=== PATIENT | female | born 1940 | race Caucasian/White ===

== ENCOUNTER 2016-08-24 09:22 | Day surgery (SDC) | payer MEDICARE, BC ==
[2016-08-23 09:08] VITALS: BMI 36.6
[~2016-08-24 09:22] MED LIST: LACTATED RINGERS 1,000 ML IV SCH
[2016-08-24] MEDS ORDERED: LIDOCAINE 1% 20 ML VIAL (10MG/ML) FOR IV START SQ ONE (10:26)
[2016-08-24 10:28] VITALS: RESP 16; TEMP 97.4
[2016-08-24 10:36] LABS: Glucose,Whole Blood 98 mg/dL (75-99)
[2016-08-24] MEDS ORDERED: PROPOFOL 10 MG/ML 20 ML VIAL IV ONE (10:47)
--- NOTE | 2016-08-24 11:18 | P.PCN ---
Date of Procedure: 08/24/16 Preoperative Diagnosis: Postoperative Diagnosis: Procedure(s) Performed: Procedure: Esophagogastroduodenoscopy and biopsy. Preoperative diagnosis: Dyspepsia and dysphagia. Postoperative diagnosis: 1. Small sliding hiatal hernia with no obvious esophagitis or complicated reflux disease. 2. Mild antral gastritis with no ulcers or gastric outlet obstruction. 3. Multiple biopsies obtained from the duodenum, antrum and esophagus. Preparation sedation: Was provided by anesthesia. Brief clinical history: The patient is a 76-year-old female who is referred for this evaluation because of onset of dysphagia over the last 2-3 months with no other alarm symptoms. No history of reflux or postnasal drip. She has been complaining of belching and excessive gassiness in her stomach as well. ENT evaluation was negative. This evaluation is to assess for esophagitis or complicated reflux disease or other pathology. Procedure: With the patient on her left lateral decubitus position and after informed consent and adequate sedation, the Olympus-GIF 160 video upper endoscope was used and was advanced under direct vision through the cricopharyngeus down the esophagus. GE junction was around 38-39 cm from the incisors and there was a small sliding hiatal hernia. The endoscope was then passed into the stomach which was insufflated with air and inspected in detail including the retroflex view in the cardia. There was minimal mottling and erythema in the antrum but no ulcers or erosions. Pyloric channel, duodenal bulb, post bulbar area and descending duodenum were essentially within normal limits. Because of her symptoms, I obtained biopsies from the duodenum, antrum and esophagus then the endoscope was withdrawn. The patient tolerated the procedure well. Plan: The patient was reassured. Will await biopsy results and make further plans based on her course and biopsy results. She will follow-up with you as planned and I will be happy to see in the office if her symptoms persist. Implants: Indications for Procedure: Operative Findings: Description of Procedure:
[2016-08-24 11:27] VITALS: BP 129/78; PULSE 66
== END 2016-08-24 12:08 | disposition home or self-care (01) ==
LOC: ORWHC2ENDO 09:22
DX: K44.9 Diaphragmatic hernia without obstruction or gangrene (principal); R13.10 Dysphagia, unspecified; R10.13 Epigastric pain; K21.9 Gastro-esophageal reflux disease without esophagitis; H04.129 Dry eye syndrome of unspecified lacrimal gland; E78.5 Hyperlipidemia, unspecified; E07.9 Disorder of thyroid, unspecified; Z79.82 Long term (current) use of aspirin; Z79.899 Other long term (current) drug therapy
CPT/HCPCS: 88305; 88342; 43239; J2704

== ENCOUNTER 2022-05-23 05:22 | Inpatient (IN) | payer MEDICARE, BC ==
[2022-05-23] MEDS ORDERED: NALOXONE 0.4 MG/ML 1 ML VIAL IV PRN (05:48)
[2022-05-23] MEDS ORDERED: ACETAMINOPHEN TAB 325 MG TAB PO PRN (05:48)
--- NOTE | 2022-05-23 05:56 | ED ---
General Adult HPI - General Chief complaint: Dizziness Stated complaint: bradycardia Time Seen by Provider: 05/23/22 05:28 Source: patient, EMS, RN notes reviewed, old records reviewed Mode of arrival: EMS Limitations: no limitations - History of Present Illness Initial comments: 82-year-old female who presents as a transfer from outside hospital with l ightheadedness when standing and bradycardia. Patient was found to be bradycardic and sent to this institution to follow with her international account representative. She states that she had noticed a bradycardia over the past 24 hours. She is on metoprolol. Denies any chest pain or dyspnea. No fever. No vomiting. - Related Data Home Medications Medication Instructions Recorded Confirmed Aspirin 81 mg PO DAILY 02/27/14 08/23/16 Furosemide [Lasix] 40 mg PO DAILY 02/27/14 08/24/16 Latanoprost Ophth [Xalatan 0.005%] 1 drops BOTH EYES HS 02/27/14 08/24/16 Levothyroxine Sodium [Synthroid] 112 mcg PO QAM 02/27/14 08/24/16 Losartan Potassium [Cozaar] 100 mg PO QAM 02/27/14 08/24/16 [place]-3 Fatty Acids/Fish Oil [Fish 1 each PO DAILY 02/27/14 08/23/16 Oil 1,000 mg Softgel] Potassium Chloride ER [K-Dur 20] 20 meq PO BID 02/27/14 08/24/16 Simvastatin [Zocor] 10 mg PO HS 02/27/14 08/24/16 Vitamin E (Dl,Tocopheryl Acet) 400 unit PO DAILY 02/27/14 08/23/16 [Vitamin E] allopurinoL [Zyloprim] 300 mg PO DAILY 02/27/14 08/24/16 Omeprazole [PriLOSEC] 20 mg PO AC-BRKFST 08/23/16 08/24/16 Allergies Allergy/AdvReac Type Severity Reaction Status Date / Time venom-wasp [wasp venom] Allergy Swelling Verified 08/24/16 10:35 Review of Systems ROS Statement: Those systems with pertinent positive or pertinent negative responses have been documented in the HPI. ROS Other: All systems not noted in ROS Statement are negative. Past Medical History Past Medical History: Eye Disorder, GERD/Reflux, Hyperlipidemia, Hypertension, Osteoarthritis (OA), Skin Disorder, Thyroid Disorder Additional Past Medical History / Comment(s): VARICOSE VEINS, ROSACEA, GLAUCOMA History of Any Multi-Drug Resistant Organisms: None Reported Past Surgical History: Bladder Surgery, Hysterectomy, Joint Replacement, Orthopedic Surgery Additional Past Surgical History / Comment(s): BLADDER SUSP, IAN KNEE REPLACEMENTS, LEFT SHOULDER SURGERY Past Anesthesia/Blood Transfusion Reactions: No Reported Reaction Additional Past Anesthesia/Blood Transfusion Reaction / Comment(s): Pt has never recieved blood. Past Psychological History: No Psychological Hx Reported Past Alcohol Use History: None Reported Past Drug Use History: None Reported - Past Family History Sister(s) Family Medical History: Cancer Additional Family Medical History / Comment(s): LUNG CANCER Brother(s) Family Medical History: Cancer Father Family Medical History: Myocardial Infarction ([place]) Mother Family Medical History: Cancer General Exam Limitations: no limitations General appearance: alert, in no apparent distress Head exam: Present: atraumatic, normocephalic Eye exam: Present: normal appearance, PERRL ENT exam: Present: normal exam Neck exam: Present: normal inspection. Absent: tenderness, meningismus Respiratory exam: Present: normal lung sounds bilaterally. Absent: respiratory distress, wheezes, rales Cardiovascular Exam: Present: normal rhythm, bradycardia GI/Abdominal exam: Present: soft. Absent: distended, tenderness, guarding Extremities exam: Present: normal inspection, normal capillary refill. Absent: pedal edema Neurological exam: Present: alert, oriented X3, CN II-XII intact. Absent: motor sensory deficit Psychiatric exam: Present: normal affect, normal mood Skin exam: Present: warm, dry, intact. Absent: cyanosis, diaphoretic Course Vital Signs 05/23/22 05:28 Temperature 97.7 F Pulse Rate 41 L Respiratory 16 Rate Blood Pressure 172/69 O2 Sat by Pulse 98 Oximetry EKG Findings - EKG Comments: EKG Findings:: EKG: Bradycardia with first-degree AV block and second-degree 2-1 AV block ventricular rate of 42, ND interval 229, QRS duration 77, QTC 4:[address] segment elevation. Medical Decision Making - Medical Decision Making Was pt. sent in by a medical professional or institution (, PA, ASSESSOR, urgent care, hospital, or half-way...) When possible be specific @ -Sent from outside emergency room Did you speak to anyone other than the patient for history (EMS, parent, family, police, friend...)? What history was obtained from this source @ -No Did you review nursing and triage notes (agree or disagree)? Why? @ -I reviewed and agree with nursing and triage notes Were old charts reviewed (outside hosp., previous admission, EMS record, old EKG, old radiological studies, urgent care reports/EKG's, half-way records)? Report findings @ -Reviewed chart from ER visit including EKG and laboratory testing Differential Diagnosis (chest pain, altered mental status, abdominal pain women, abdominal pain men, vaginal bleeding, weakness, fever, dyspnea, syncope, headache, dizziness, GI bleed, back pain, seizure, CVA, palpatations, mental health, musculoskeletal)? Differential Palpitations Ventricular arrhythmias, atrial arrhythmias, myocardial infarction, anemia, thyrotoxicosis, electrolyte imbalance, hypokalemia, pulmonary embolism, pulmonary disease, drugs, alcohol, anxiety, stress.... This is not meant to be an all-inclusive list. EKG interpreted by me (3pts min.). @ -As above X-rays interpreted by me (1pt min.). @ -Chest x-ray currently being loaded interpreted as negative. CT interpreted by me (1pt min.). @ -None done U/S interpreted by me (1pt. min.). @ -None done What testing was considered but not performed or refused? (CT, X-rays, U/S, labs)? Why? @ -None What meds were considered but not given or refused? Why? @ -None Did you discuss the management of the patient with other professionals (professionals i.e. , PA, ASSESSOR, lab, RT, psych nurse, social studies department chair, amusement ride inspector, teacher, correction officer head, case advocate)? Give summary @ -Patient will be admitted to EMS, case discussed with the admitting team and cardiology. Was smoking cessation discussed for >3mins.? @ -No Was critical care preformed (if so, how long)? @ -No Were there social determinants of health that impacted care today? How? (Homelessness, low income, unemployed, alcoholism, drug addiction, transportation, low edu. Level, literacy, decrease access to med. care, usp, rehab)? @ -No Was there de-escalation of care discussed even if they declined (Discuss DNR or withdrawal of care, Hospice)? DNR status @ -No What co-morbidities impacted this encounter? (DM, HTN, Smoking, COPD, CAD, Cancer, CVA, ARF, Chemo, Hep., AIDS, mental health diagnosis, sleep apnea, morbid obesity)? @ -Hypertension, sleep apnea Was patient admitted / discharged? Hospital course, mention meds given and route, prescriptions, significant lab abnormalities, going to OR and other pertinent info. @ -82-year-old female transferred from outside facility with bradycardia and second-degree AV block with 2-1 conduction ventricular rate in the 40s. Blood pressure remained stable throughout transport and admitted at the time of presentation. She had laboratory testing which revealed normal CBC, normal CMP. These lab tests will be repeated as well as troponin testing. To be admitted to internal medicine with cardiology on consult. Undiagnosed new problem with uncertain prognosis? @ -No Drug Therapy requiring intensive monitoring for toxicity (Heparin, Nitro, Insulin, Cardizem)? @ -No Were any procedures done? @ -No Diagnosis/symptom? @ -Second-degree heart block with 2-1 AV conduction Acute, or Chronic, or Acute on Chronic? @ -Acute Uncomplicated (without systemic symptoms) or Complicated (systemic symptoms)? @ -Complicated Side effects of treatment? @ -Possibly Exacerbation, Progression, or Severe Exacerbation? @ -No Poses a threat to life or bodily function? How? (Chest pain, [place], [place], pneumonia, PE, COPD, DKA, ARF, appy, cholecystitis, CVA, Diverticulitis, Homicidal, Suicidal, threat to staff... and all critical care pts) @ -Bradycardia with hypotension Disposition Clinical Impression: 2nd degree AV block Disposition: ADMITTED IP TO THIS HOSP Condition: Stable Is patient prescribed a controlled substance at d/c from ED?: No Referrals: Nonstaff,Physician [Primary Care Provider] - 1-2 days Time of Disposition: 05:56
[2022-05-23 08:38] LABS: Calcium 9.5 mg/dL (8.4-10.2); Potassium 4.3 mmol/L (3.5-5.1)
[2022-05-23 09:14] LABS: HCT 41.1 % (34.0-46.0); HGB 14.2 gm/dL (11.4-16.0); MCH 33.2 pg (25.0-35.0); MCHC 34.5 g/dL (31.0-37.0); MCV 96.3 fL (80.0-100.0); Mean Platelet Volume 8.1; Platelet Count 153 k/uL (150-450); RBC 4.27 m/uL (3.80-5.40); RDW 13.7 % (11.5-15.5); WBC 6.6 k/uL (3.8-10.6)
[2022-05-23] MEDS: ASPIRIN 81 MG PO SCH (09:21)
[2022-05-23] MEDS: LOSARTAN 50 MG TAB PO SCH (09:21)
[2022-05-23] MEDS: SODIUM CHLORIDE 0.9% 1,000 ML IV SCH ×3 (10:00→22:30)
--- NOTE | 2022-05-23 10:29 | P.CRDCN ---
History of Present Illness Consult date: 05/23/22 Reason for Consult (text): Bradycardia, second degree heart block History of present illness: History of present illness: This is an 82-year-old female patient of Dr. Grisel Hickman with past medical history of hypertension, dyslipidemia, mild obstructive coronary artery disease. She was last seen in the office in July 2021. We have been asked to evaluate the patient for bradycardia and second-degree heart block. Patient presented to the emergency center with lightheadedness with standing and was found to have bradycardia. EKG sinus rhythm with first-degree AV block, second-degree AV block with ventricular rate of 42, no acute ST-T changes Chest x-ray: Home cardiac medications: Aspirin 81 mg daily, Bumex 2 mg daily, Lasix 40 mg daily, losartan 100 mg daily, magnesium 500 mg daily, Toprol-XL 50 mg daily, simvastatin 40 mg at bedtime Cardiac catheterization in 2010 revealed minimal CAD Echocardiogram 12/2018 revealed normal LV size and normal function. Mild concentric hypertrophy and mild aortic regurgitation. Mild mitral regurgi tation. Mild tricuspid regurgitation. Mild pulmonic regurgitation Lexiscan stress test 05/2018: Negative stress test Review Of Systems: At the time of my evaluation: Constitutional: No fever, no chills. No weakness, fatigue or lethargy. EENT: No headache. No dizziness. Lungs: No shortness of breath, cough, no sputum production. No wheezing. Cardiovascular: No chest pain, no lower extremity edema. No palpitations. No paroxysmal nocturnal dyspnea. No orthopnea. No lightheadedness or dizziness. No syncopal episodes. Abdominal: No abdominal pain. No nausea, vomiting. No diarrhea. No constipation. No bloody or tarry stools. Genitourinary: No dysuria.. No urinary retention. Musculoskeletal: No myalgias. No muscle weakness, no frequent falls. No back pain. No neck pain. Integumentary: No wounds. No rash. No unusual bruising. Neurologic: No aphasia. No facial droop. No change in mentation. No head injury. No headache. Physical examination: Gen: This is an 82-year-old female. She is resting on the ER stretcher and appears to be comfortable and in no acute distress. VS: reviewed HEENT: Head is atraumatic, normocephalic. Pupils equal, round. Sclerae is a nicteric. NECK: Supple. No JVD. . LUNGS: Clear to auscultation. No wheezes or rhonchi. No intercostal retractions. HEART: Regular rate and rhythm. No murmur. ABDOMEN: Soft No tenderness. EXTREMITIES: No pedal edema. No calf tenderness. NEUROLOGICAL: Patient is awake, alert and oriented x3. Assessment: [ ] Plan: [ ] Obtain 2-D echocardiogram and Doppler study to assess cardiac structure and function Further recommendations to follow based upon clinical course Thank you kindly for this consultation. Nurse practitioner note has been reviewed, I agree with documented findings and plan of care. Patient was seen and examined. Past Medical History Past Medical History: Eye Disorder, GERD/Reflux, Hyperlipidemia, Hypertension, Osteoarthritis (OA), Skin Disorder, Thyroid Disorder Additional Past Medical History / Comment(s): VARICOSE VEINS, ROSACEA, GLAUCOMA History of Any Multi-Drug Resistant Organisms: None Reported Past Surgical History: Bladder Surgery, Hysterectomy, Joint Replacement, Orthopedic Surgery Additional Past Surgical History / Comment(s): BLADDER SUSP, IAN KNEE REPLACEMENTS, LEFT SHOULDER SURGERY Past Anesthesia/Blood Transfusion Reactions: No Reported Reaction Additional Past Anesthesia/Blood Transfusion Reaction / Comment(s): Pt has never recieved blood. Past Psychological History: No Psychological Hx Reported Past Alcohol Use History: None Reported Past Drug Use History: None Reported - Past Family History Sister(s) Family Medical History: Cancer Additional Family Medical History / Comment(s): LUNG CANCER Brother(s) Family Medical History: Cancer Father Family Medical History: Myocardial Infarction ([place]) Mother Family Medical History: Cancer Medications and Allergies Home Medications Medication Instructions Recorded Confirmed Type Aspirin 81 mg PO DAILY 02/27/14 05/23/22 History Furosemide [Lasix] 40 mg PO DAILY 02/27/14 05/23/22 History Latanoprost Ophth [Xalatan 0.005%] 1 drop BOTH EYES HS 02/27/14 05/23/22 History Losartan Potassium [Cozaar] 100 mg PO DAILY 02/27/14 05/23/22 History [place]-3 Fatty Acids/Fish Oil [Fish 1 cap PO DAILY 02/27/14 05/23/22 History Oil 1,000 mg Softgel] Potassium Chloride ER [K-Dur 20] 20 meq PO BID 02/27/14 05/23/22 History Vitamin E (Dl,Tocopheryl Acet) 400 unit PO DAILY 02/27/14 05/23/22 History [Vitamin E] allopurinoL [Zyloprim] 300 mg PO DAILY 02/27/14 05/23/22 History Ascorbic Acid [Vitamin C] 1,000 mg PO DAILY 05/23/22 05/23/22 History Brimonidine Tartrate [Alphagan P 1 drop BOTH EYES BID 05/23/22 05/23/22 History 0.2% Ophth Soln] Bumetanide [BUMEX] 2 mg PO DAILY 05/23/22 05/23/22 History Calcium Carbonate [Calcium] 600 mg PO DAILY 05/23/22 05/23/22 History EPINEPHrine (Auto Inject) [Epipen] 0.3 mg IM ONCE PRN 05/23/22 05/23/22 History Levothyroxine Sodium [Synthroid] 100 mcg PO DAILY 05/23/22 05/23/22 History Magnesium Oxide [Magnesium] 500 mg PO DAILY 05/23/22 05/23/22 History Metoprolol Succinate [Toprol XL] 50 mg PO DAILY 05/23/22 05/23/22 History Multivit-Min/FA/Lycopen/Lutein 1 tab PO DAILY 05/23/22 05/23/22 History [Centrum Silver Tablet] Omeprazole 20 mg PO DAILY 05/23/22 05/23/22 History Simvastatin [Zocor] 40 mg PO HS 05/23/22 05/23/22 History Vitamin B Complex 1 cap PO DAILY 05/23/22 05/23/22 History Zinc Gluconate [Zinc] 50 mg PO DAILY 05/23/22 05/23/22 History Allergies Allergy/AdvReac Type Severity Reaction Status Date / Time bee venom protein (honey bee) Allergy Anaphylaxis Verified 05/23/22 07:06 venom-wasp [wasp venom] Allergy Anaphylaxis Verified 05/23/22 07:06 Physical Exam Vitals: Vital Signs Temp Pulse Resp BP Pulse Ox 05/23/22 06:30 38 L 16 151/60 97 05/23/22 06:00 39 L 16 172/69 96 05/23/22 05:28 97.7 F 41 L 16 172/69 98 Intake and Output 05/22/22 05/23/22 05/23/22 22:59 06:59 14:59 Other: Weight 97.522 kg Results Current Medications Generic Name Dose Route Start Last Admin Trade Name Freq PRN Reason Stop Dose Admin Acetaminophen 650 mg 05/23/22 05:48 Acetaminophen Tab 325 Mg Tab PO Q6HR PRN Mild Pain or Fever > 100.5 Naloxone HCl 0.2 mg 05/23/22 05:48 Naloxone 0.4 Mg/Ml 1 Ml Vial IV Q2M PRN Opioid Reversal Intake and Output 05/22/22 05/23/22 05/23/22 22:59 06:59 14:59 Other: Weight 97.522 kg
--- NOTE | 2022-05-23 11:31 | CA ---
Transthoracic Echo Report Name: Radha Faria Age: 82 Gender: F : 1940 Exam Date: 05/23/2022 10:16 Exam Location: [facility] Ht (in): 65 Wt (lb): 215 Ordering Physician: Tayler Garzon Attending/Referring Phys: Hair Boiler Mehdi Esposito RDCS Procedure CPT: Indications: LVF Cardiac Hx: Technical Quality: Fair Contrast 1: Total Dose (mL): Contrast 2: Total Dose (mL): MEASUREMENTS (Male / Female) Normal Values 2D ECHO LV Diastolic Diameter PLAX 4.5 cm 4.2 - 5.9 / 3.9 - 5.3 cm LV Systolic Diameter PLAX 3.4 cm LV Fractional Shortening PLAX 23.4 % IVS Diastolic Thickness 1.0 cm 0.6 - 1.0 / 0.6 - 0.9 cm IVS Systolic Thickness 1.3 cm LVPW Diastolic Thickness 1.0 cm 0.6 - 1.0 / 0.6 - 0.9 cm LVPW Systolic Thickness 1.3 cm LV Relative Wall Thickness 0.4 RV Internal Dim ED PLAX 3.1 cm LVOT Diameter 2.3 cm LA Systolic Diameter LX 3.1 cm 3.0 - 4.0 / 2.7 - 3.8 cm LV Diastolic Volume MOD BP 88.1 cm??? 67 - 155 / 56 - 104 cm??? LV Systolic Volume MOD BP 34.8 cm??? 22 - 58 / 19 - 49 cm??? LV Ejection Fraction MOD BP 60.5 % >= 55 % LV Stroke Volume MOD BP 53.3 cm??? LV Diastolic Volume MOD 4C 87.2 cm??? LV Systolic Volume MOD 4C 24.2 cm??? LV Ejection Fraction MOD 4C 72.3 % LV Stroke Volume MOD 4C 63.1 cm??? LV Diastolic Length 4C 7.9 cm LV Systolic Length 4C 5.8 cm LV Diastolic Volume MOD 2C 73.8 cm??? LV Systolic Volume MOD 2C 49.0 cm??? LV Ejection Fraction MOD 2C 33.6 % LV Stroke Volume MOD 2C 24.8 cm??? LV Diastolic Length 2C 6.4 cm LV Systolic Length 2C 6.0 cm Ascending Aorta Diameter 2.8 cm M-MODE Aortic Root Diameter MM 3.4 cm LA Systolic Diameter MM 4.2 cm LA Ao Ratio MM 1.2 DOPPLER AV Peak Velocity 201.0 cm/s AV Peak Gradient 16.2 mmHg AI Peak Velocity 343.7 cm/s AI Peak Gradient 47.2 mmHg AI Deceleration [place] 105.2 cm/s??? AI Pressure Half Time 947.0 ms LVOT Peak Velocity 138.7 cm/s LVOT Peak Gradient 7.7 mmHg AV Area Cont Eq pk 2.9 cm??? MV Deceleration [place] 830.7 cm/s??? MR Peak Velocity 189.6 cm/s MR Peak Gradient 14.4 mmHg Mitral E Point Velocity 155.3 cm/s Mitral A Point Velocity 73.5 cm/s Mitral E to A Ratio 2.1 MV Deceleration Time 187.0 ms MV E' Velocity 12.2 cm/s Mitral E to MV E' Ratio 12.7 TR Peak Velocity 162.4 cm/s TR Peak Gradient 10.5 mmHg Right Ventricular Systolic Press 15.5 mmHg PV Peak Velocity 89.6 cm/s PV Peak Gradient 3.2 mmHg FINDINGS Left Ventricle Left ventricular ejection fraction is estimated at 55-60 %. Grade 1 diastolic dysfunction. Normal basal systolic function. Right Ventricle Normal right ventricular size and function. Right Atrium Normal right atrial size. Left Atrium Normal left atrial size. Mitral Valve Mild thickening/calcification of the anterior mitral valve leaflet. Mild thickening/calcification of the posterior mitral valve leaflet. Moderate mitral annular calcification. Trace mitral regurgitation. Aortic Valve Trileaflet aortic valve. Focal thickening of the aortic valve cusps. Diffuse thickening (sclerosis) of the aortic valve cusps without reduced excursion. Borderline aortic stenosis; [id number] aortic regurgitation. Tricuspid Valve Mild tricuspid regurgitation. Pulmonic Valve Pulmonic valve not well visualized. Pericardium Normal pericardium. Echo free space anterior to the right ventricle likely represents a fat pad. Aorta Normal size aortic root and proximal ascending aorta. CONCLUSIONS Left ventricular ejection fraction 55-60% Moderate mitral annular calcification Trace mitral regurgitation Mild to moderate aortic regurgitation Mild tricuspid regurgitation No pericardial effusion Previewed by: Dr. Marcelo Becker DO (Electronically Signed) Final Date: 23 May 2022 11:30
--- NOTE | 2022-05-23 11:55 | P.HPIM ---
History of Present Illness Patient is pleasant 82-year-old female came in because of dizziness, lightheadedness. Patient was seen at the outside hospital where she was found to have a severe bradycardia second-degree type I AV block. Patient did take metoprolol within last 24 hours which is being held and cardiology evaluated the patient. If patient can use to have bradycardia after 48 hours of taking metoprolol patient will be considered for pacemaker placement. Echocardiogram showed normal ejection fraction. No other significant abnormality was evident on biochemical and radiological testing. TSH is within normal limits REVIEW OF SYSTEMS: CONSTITUTIONAL: No fever, no malaise, no fatigue. HEENT: No recent visual problems or hearing problems. Denied any sore throat. CARDIOVASCULAR: No chest pain, orthopnea, PND, no palpitations, no syncope. PULMONARY: No shortness of breath, no cough, no hemoptysis. GASTROINTESTINAL: No diarrhea, no nausea, no vomiting, no abdominal pain. NEUROLOGICAL: No headaches, no weakness, no numbness. HEMATOLOGICAL: Denies any bleeding or petechiae. GENITOURINARY: Denies any burning micturition, frequency, or urgency. MUSCULOSKELETAL/RHEUMATOLOGICAL: Denies any joint pain, swelling, or any muscle pain. ENDOCRINE: Denies any polyuria or polydipsia. The rest of the 14-point review of systems is negative. PHYSICAL EXAMINATION: GENERAL: The patient is alert and oriented x3, not in any acute distress. Well developed, well nourished. HEENT: Pupils are round and equally reacting to light. EOMI. No scleral icterus. No conjunctival pallor. Normocephalic, atraumatic. No pharyngeal erythema. No thyromegaly. CARDIOVASCULAR: S1 and S2 present. No murmurs, rubs, or gallops. PULMONARY: Chest is clear to auscultation, no wheezing or crackles. ABDOMEN: Soft, nontender, nondistended, normoactive bowel sounds. No palpable organomegaly. MUSCULOSKELETAL: No joint swelling or deformity. EXTREMITIES: No cyanosis, clubbing, or pedal edema. NEUROLOGICAL: Gross neurological examination did not reveal any focal deficits. SKIN: No rashes. Assessment and plan -Symptomatic bradycardia patient has second-degree type I AV block with heart rate going to as low as low 30s. Continue to hold metoprolol, if patient can use to be symptomatic and continues to be bradycardic and pacemaker recent will be considered at the time. His bradycardia secondary to metoprolol -Hyperlipidemia -Hypertension -Hypothyroidism on levothyroxine DVT prophylaxis: Lovenox Past Medical History Past Medical History: Eye Disorder, GERD/Reflux, Hyperlipidemia, Hypertension, Osteoarthritis (OA), Skin Disorder, Thyroid Disorder Additional Past Medical History / Comment(s): VARICOSE VEINS, ROSACEA, GLAUCOMA History of Any Multi-Drug Resistant Organisms: None Reported Past Surgical History: Bladder Surgery, Hysterectomy, Joint Replacement, Orthopedic Surgery Additional Past Surgical History / Comment(s): BLADDER SUSP, IAN KNEE REPLACEMENTS, LEFT SHOULDER SURGERY Past Anesthesia/Blood Transfusion Reactions: No Reported Reaction Additional Past Anesthesia/Blood Transfusion Reaction / Comment(s): Pt has never recieved blood. Past Psychological History: No Psychological Hx Reported Past Alcohol Use History: None Reported Past Drug Use History: None Reported - Past Family History Sister(s) Family Medical History: Cancer Additional Family Medical History / Comment(s): LUNG CANCER Brother(s) Family Medical History: Cancer Father Family Medical History: Myocardial Infarction (CA) Mother Family Medical History: Cancer Medications and Allergies Home Medications Medication Instructions Recorded Confirmed Type Aspirin 81 mg PO DAILY 02/27/14 05/23/22 History Furosemide [Lasix] 40 mg PO DAILY 02/27/14 05/23/22 History Latanoprost Ophth [Xalatan 0.005%] 1 drop BOTH EYES HS 02/27/14 05/23/22 History Losartan Potassium [Cozaar] 100 mg PO DAILY 02/27/14 05/23/22 History [place]-3 Fatty Acids/Fish Oil [Fish 1 cap PO DAILY 02/27/14 05/23/22 History Oil 1,000 mg Softgel] Potassium Chloride ER [K-Dur 20] 20 meq PO BID 02/27/14 05/23/22 History Vitamin E (Dl,Tocopheryl Acet) 400 unit PO DAILY 02/27/14 05/23/22 History [Vitamin E] allopurinoL [Zyloprim] 300 mg PO DAILY 02/27/14 05/23/22 History Ascorbic Acid [Vitamin C] 1,000 mg PO DAILY 05/23/22 05/23/22 History Brimonidine Tartrate [Alphagan P 1 drop BOTH EYES BID 05/23/22 05/23/22 History 0.2% Ophth Soln] Bumetanide [BUMEX] 2 mg PO DAILY 05/23/22 05/23/22 History Calcium Carbonate [Calcium] 600 mg PO DAILY 05/23/22 05/23/22 History EPINEPHrine (Auto Inject) [Epipen] 0.3 mg IM ONCE PRN 05/23/22 05/23/22 History Levothyroxine Sodium [Synthroid] 100 mcg PO DAILY 05/23/22 05/23/22 History Magnesium Oxide [Magnesium] 500 mg PO DAILY 05/23/22 05/23/22 History Metoprolol Succinate [Toprol XL] 50 mg PO DAILY 05/23/22 05/23/22 History Multivit-Min/FA/Lycopen/Lutein 1 tab PO DAILY 05/23/22 05/23/22 History [Centrum Silver Tablet] Omeprazole 20 mg PO DAILY 05/23/22 05/23/22 History Simvastatin [Zocor] 40 mg PO HS 05/23/22 05/23/22 History Vitamin B Complex 1 cap PO DAILY 05/23/22 05/23/22 History Zinc Gluconate [Zinc] 50 mg PO DAILY 05/23/22 05/23/22 History Allergies Allergy/AdvReac Type Severity Reaction Status Date / Time bee venom protein (honey bee) Allergy Anaphylaxis Verified 05/23/22 07:06 venom-wasp [wasp venom] Allergy Anaphylaxis Verified 05/23/22 07:06 Physical Exam Vitals: Vital Signs Temp Pulse Resp BP Pulse Ox 05/23/22 11:19 42 L 18 123/85 98 05/23/22 08:00 42 L 10 L 144/61 99 05/23/22 07:21 36 L 18 130/64 95 05/23/22 07:00 38 L 13 142/66 96 05/23/22 06:30 38 L 16 151/60 97 05/23/22 06:00 39 L 16 172/69 96 05/23/22 05:28 97.7 F 41 L 16 172/69 98 Intake and Output 05/22/22 05/23/22 05/23/22 22:59 06:59 14:59 Other: Weight 97.522 kg Results CBC & Chem 7: 05/23/22 08:11 05/23/22 08:11 Labs: Abnormal Lab Results - Last 24 Hours (Table) 03/28/23 Range/Units 08:11 Carbon Dioxide 35 H (22-30) mmol/L BUN 23 H (7-17) mg/dL Glucose 119 H (74-99) mg/dL
[2022-05-23 12:37] LABS: Band Neutrophils % 2 %; Lymphocytes # (M) 1.91 k/uL (1.0-4.8); Monocytes # (M) 0.53 k/uL (0-1.0); Neutrophils % (M) 61 %; Nucleated Red Blood Cells 0 /100 WBC (0-0); Total Cells Counted 100
[2022-05-23 13:05] LABS: Glucose,Whole Blood 125 mg/dL (70-110)
[2022-05-23] MEDS: LATANOPROST 0.005% OPHTH DROPS 2.5 ML BTL BOTH EYES SCH (20:00)
[2022-05-23] MEDS: BRIMONIDINE TARTRATE 0.2% DROPS 5 ML BTL BOTH EYES SCH (20:00)
[2022-05-23] MEDS: ATORVASTATIN 20 MG TAB PO SCH (20:00)
[2022-05-24] MEDS: CALCIUM CARBONATE 500 MG CHEWABLE PO SCH (05:31)
[2022-05-24] MEDS: ASPIRIN 81 MG PO SCH (05:31)
[2022-05-24] MEDS: LOSARTAN 50 MG TAB PO SCH (05:31)
[2022-05-24] MEDS: MAGNESIUM OXIDE 400 MG TAB PO SCH (05:31)
[2022-05-24] MEDS: allopurinoL 300 MG TAB PO SCH (05:31)
[2022-05-24] MEDS: LEVOTHYROXINE 100 MCG TAB PO SCH (05:31)
[2022-05-24] MEDS: BRIMONIDINE TARTRATE 0.2% DROPS 5 ML BTL BOTH EYES SCH ×2 (05:31→19:53)
[2022-05-24] MEDS: SODIUM CHLORIDE 0.9% 1,000 ML IV SCH ×3 (05:35→23:29)
[2022-05-24] MEDS ORDERED: IV FLUID CONTINUATION 1,000 ML IV ONE (07:22)
[2022-05-24] MEDS ORDERED: IOPAMIDOL-370 100ML BTL INJ ONE (07:35)
[2022-05-24] MEDS ORDERED: LIDOCAINE 1% INJ 10MG/ML (20 ML MDV) ONE (07:45)
[2022-05-24] MEDS: ceFAZolin 1,000 MG in SODIUM CHLORIDE 0.9% IRRIG BTL 250 ML IRRIGATION PRN ×2 (08:20→08:27)
[2022-05-24] MEDS: MIDAZOLAM 2 MG/2 ML VIAL IV ONE ×3 (08:23→09:32)
[2022-05-24] MEDS ORDERED: fentaNYL (PF) 50 MCG/ML 2 ML AMP ONE (08:25)
[2022-05-24] MEDS: fentaNYL (PF) 50 MCG/ML 2 ML AMP IV ONE ×3 (08:29→09:32)
[2022-05-24] MEDS ORDERED: LIDOCAINE 1% INJ 10MG/ML (20 ML MDV) SQ ONE ×2 (08:40→09:06)
[2022-05-24] MEDS ORDERED: PANTOPRAZOLE 40 MG TABLET PO SCH (09:00)
[2022-05-24] MEDS ORDERED: FUROSEMIDE 40 MG TAB PO SCH (09:00)
[2022-05-24] MEDS ORDERED: HYDROcodone/APAP 5-325MG 1 EACH TAB PO PRN (09:51)
[2022-05-24] MEDS ORDERED: ACETAMINOPHEN IV (For NPO) 1,000 MG in EMPTY BAG 1 BAG IVPB ONE (09:51)
--- NOTE | 2022-05-24 12:35 | P.PN ---
Subjective Progress Note Date: 05/24/22 Bradycardia, second degree heart block History of present illness: History of present illness: This is an 82-year-old female patient of Dr. Grisel Hickman with past medical history of hypertension, dyslipidemia, mild obstructive coronary artery disease. She was last seen in the office in July 2021. We have been asked to evaluate the patient for bradycardia and second-degree heart block. Patient presented to the emergency center with lightheadedness with standing and was found to have bradycardia. EKG sinus rhythm with first-degree AV block, second-degree AV block with ventric ular rate of 42, no acute ST-T changes Chest x-ray: Home cardiac medications: Aspirin 81 mg daily, Bumex 2 mg daily, Lasix 40 mg daily, losartan 100 mg daily, magnesium 500 mg daily, Toprol-XL 50 mg daily, simvastatin 40 mg at bedtime Cardiac catheterization in 2010 revealed minimal CAD Echocardiogram 12/2018 revealed normal LV size and normal function. Mild concentric hypertrophy and mild aortic regurgitation. Mild mitral regurgitation. Mild tricuspid regurgitation. Mild pulmonic regurgitation Lexiscan stress test 05/2018: Negative stress test 05/24 Patient underwent pacemaker implantation with Dr. Aiken with morning. She is currently in paced rhythm at the 60s. Echocardiogram reveals EF of 55-60%, moderate mitral annular calcification, trace mitral regurgitation, mild to moderate aortic regurgitation, mild tricuspid regurgitation, no pericardial effusion. Physical examination: Gen: This is an 82-year-old female. She is resting on the ER stretcher and appears to be comfortable and in no acute distress. VS: reviewed HEENT: Head is atraumatic, normocephalic. Pupils equal, round. Sclerae is anicteric. NECK: Supple. No JVD. . LUNGS: Clear to auscultation. No wheezes or rhonchi. No intercostal retractions. HEART: Regular rate and rhythm. No murmur. ABDOMEN: Soft No tenderness. EXTREMITIES: No pedal edema. No calf tenderness. NEUROLOGICAL: Patient is awake, alert and oriented x3. Assessment: She was found to be in 2-1 AV block with bradycardia in the 40s, narrow QRS status post permanent pacemaker History of hypertension dyslipidemia Normal potassium normal electrolytes normal TSH Plan: Continue current cardiac medications Plan to monitor for another 24 hours and discharge home tomorrow. Nurse practitioner note has been reviewed, I agree with documented findings and plan of care. Patient was seen and examined. Objective - Vital Signs Vital signs: Vital Signs Temp 98.1 F 05/24/22 10:43 Pulse 69 05/24/22 10:43 Resp 16 05/24/22 10:43 BP 163/81 05/24/22 10:43 Pulse Ox 97 05/24/22 10:43 FiO2 Intake & Output 05/23/22 05/24/22 05/24/22 18:59 06:59 18:59 Intake Total 118 510 250 Balance 118 510 250 Weight 97.522 kg 89.5 kg Intake: IV 10 250 Invasive Line 3 10 Oral 118 500 Other: Voiding Method Toilet Toilet # Voids 1 1 # Bowel Movements 1 - Labs CBC & Chem 7: 05/23/22 08:11 05/23/22 08:11 Labs: Abnormal Lab Results - Last 24 Hours (Table) 05/23/22 Range/Units 13:04 POC Glucose (mg/dL) 125 H (70-110) mg/dL
[2022-05-24 13:11] VITALS: BMI 32.8
--- NOTE | 2022-05-24 16:11 | P.PN ---
Subjective Progress Note Date: 05/24/22 Patient is pleasant 82-year-old female came in because of dizziness, lightheadedness. Patient was seen at the outside hospital where she was found to have a severe bradycardia second-degree type I AV block. Patient did take metoprolol within last 24 hours which is being held and cardiology evaluated the patient. If patient can use to have bradycardia after 48 hours of taking metoprolol patient will be considered for pacemaker placement. Echocardiogram showed normal ejection fraction. No other significant abnormality was evident on biochemical and radiological testing. TSH is within normal limits 05/24/2022 Patient is evaluated today postoperative day 0 permanent pacemaker. Reports no pain. Blood pressure has improved to 138/79. Patient will be monitored overnight. Review of Systems Constitutional: Denied any fatigue denied any fever. Cardio vascular: denied any chest pain, palpitations Gastrointestinal: denied any nausea, vomiting, diarrhea Pulmonary: Denied any shortness of breath cough Neurologic denied any new focal deficits All inpatient medications were reviewed and appropriate changes in these medications as dictated in the interval history and assessment and plan. PHYSICAL EXAMINATION: GENERAL: The patient is alert and oriented x3, not in any acute distress. Well developed, well nourished. HEENT: Pupils are round and equally reacting to light. EOMI. No scleral icterus. No conjunctival pallor. Normocephalic, atraumatic. No pharyngeal erythema. No thyromegaly. CARDIOVASCULAR: S1 and S2 present. No murmurs, rubs, or gallops. PULMONARY: Chest is clear to auscultation, no wheezing or crackles. ABDOMEN: Soft, nontender, nondistended, normoactive bowel sounds. No palpable organomegaly. MUSCULOSKELETAL: No joint swelling or deformity. EXTREMITIES: No cyanosis, clubbing, or pedal edema. NEUROLOGICAL: Gross neurological examination did not reveal any focal deficits. SKIN: No rashes. Post surgical incision left anterior chest wall with dressing intact. No shadowing noted. Assessment and plan -Symptomatic bradycardia patient has second-degree type I AV block with heart rate going to as low as low 30s. -Status post permanent pacemaker -Hypertension -Hypothyroidism on levothyroxine DVT prophylaxis: Lovenox Full Code Plan Pateint will continue to be monitored overnight and likely discharge tomorrow. The impression and plan of care has been dictated by Viv Simeon, Nurse Practitioner as directed. Dr. Ana Maria MD I have performed a history and physical examination and medical decision making of this patient, discussed the same with the dictator, and agree with the dictators assessment and plan as written, documented as a scribe. Based on total visit time, I have performed more than 50% of this visit. Objective - Vital Signs Vital signs: Vital Signs Temp 98.3 F 05/24/22 03:00 Pulse 43 L 05/24/22 03:00 Resp 16 05/24/22 03:00 BP 142/55 05/24/22 03:00 Pulse Ox 96 05/24/22 03:00 FiO2 Intake & Output 05/23/22 05/24/22 05/24/22 18:59 06:59 18:59 Intake Total 118 510 250 Balance 118 510 250 Weight 97.522 kg 89.5 kg Intake: IV 10 250 Invasive Line 3 10 Oral 118 500 Other: Voiding Method Toilet Toilet # Voids 1 1 # Bowel Movements 1 - Labs CBC & Chem 7: 05/23/22 08:11 05/23/22 08:11 Labs: Abnormal Lab Results - Last 24 Hours (Table) 05/23/22 Range/Units 13:04 POC Glucose (mg/dL) 125 H (70-110) mg/dL Assessment and Plan Time with Patient: Less than 30
[2022-05-24] MEDS: ACETAMINOPHEN TAB 325 MG TAB PO PRN (16:35)
[2022-05-24] MEDS: PANTOPRAZOLE 40 MG/10 ML VIAL IVP SCH (19:53)
[2022-05-24] MEDS: ATORVASTATIN 20 MG TAB PO SCH (19:53)
[2022-05-24] MEDS: LATANOPROST 0.005% OPHTH DROPS 2.5 ML BTL BOTH EYES SCH (19:53)
[2022-05-24] MEDS: SIMETHICONE 40 MG/0.6 ML DROPS 2,000 MG/30 ML BOTTLE PO PRN ×2 (20:43→23:25)
[2022-05-25] MEDS: LEVOTHYROXINE 100 MCG TAB PO SCH (06:25)
[2022-05-25] MEDS: SODIUM CHLORIDE 0.9% 1,000 ML IV SCH ×2 (06:25→22:04)
[2022-05-25] MEDS: MAGNESIUM OXIDE 400 MG TAB PO SCH (08:10)
[2022-05-25] MEDS: ASPIRIN 81 MG PO SCH (08:10)
[2022-05-25] MEDS: CALCIUM CARBONATE 500 MG CHEWABLE PO SCH (08:10)
[2022-05-25] MEDS: PANTOPRAZOLE 40 MG/10 ML VIAL IVP SCH (08:10)
[2022-05-25] MEDS: allopurinoL 300 MG TAB PO SCH (08:10)
[2022-05-25] MEDS: LOSARTAN 50 MG TAB PO SCH (08:11)
[2022-05-25] MEDS: BRIMONIDINE TARTRATE 0.2% DROPS 5 ML BTL BOTH EYES SCH ×2 (08:11→19:49)
--- NOTE | 2022-05-25 08:29 | XR ---
EXAMINATION TYPE: XR chest 1V portable DATE OF EXAM: 05/25/2022 COMPARISON: 09/15/2010 INDICATION: Lead placement TECHNIQUE: Single frontal view of the chest is obtained. FINDINGS: The heart size is normal. The pulmonary vasculature is normal. The lungs are clear. Pacemaker overlies left chest. 2 leads are in typical orientation. Left shoulder prosthesis is presen t. Right shoulder degenerative changes are present. IMPRESSION: 1. No acute pulmonary process. 2. No pneumothorax post pacemaker placement. Leads are in a typical orientation.
[2022-05-25] MEDS: carvediloL 6.25 MG TAB PO SCH ×2 (10:25→16:19)
--- NOTE | 2022-05-25 11:30 | P.EPPROC ---
- EP Procedure Note Electrophysiology Procedure Note: Diagnosis Symptomatic bradycardia secondary to 2-1 AV block that has not improved despite discontinuation of beta blockers Procedure Dual-chamber pacemaker implantation Details Patient was brought to the EP lab in a fasting state. Written informed consent was obtained prior to the procedure. Conscious sedation provided. Left upper extremity venogram performed. 15 mL IV dye injected. Patent left axillary and subclavian venous system. IV antibiotics administered. Local anesthesia administered. A 4 cm incision made in the pectoral area. Subfascial pocket made. Venous accesses obtained Venous sheaths placed. Leads placed in the right heart Atrial lead position the right atrial appendage. Medtronic lead, 52 cm, model #5076 P waves 2.1 mV, pacing impedance 570 ohms and pacing threshold 0.5 V at 0.4 ms 10 V tested negative RV lead position in the RV apex. 58 cm, model #5076, R waves 20 mV, pacing impedance 779 ohms 10 V test negative Device plastics and composites inspector: Medtronic SHIRLEY XT DR MRI Dual-chamber pacemaker device connected to the leads and placed in the subfascial pocket Patient tolerated the procedure well without acute complications Pacemaker programming DDD 60-130, AV delay 180 ms Patient underwent EP procedure under conscious sedation/moderate sedation, monitoring of the level of consciousness and physiologic parameters including but not limited to vital signs and oxygenation. Patient tolerated the procedure well without any acute complications. Start time: 836 Stop time: 944
--- NOTE | 2022-05-25 12:20 | P.PN ---
Subjective Progress Note Date: 05/25/22 Bradycardia, second degree heart block History of present illness: History of present illness: This is an 82-year-old female patient of Dr. Grisel Hickman with past medical history of hypertension, dyslipidemia, mild obstructive coronary artery disease. She was last seen in the office in July 2021. We have been asked to evaluate the patient for bradycardia and second-degree heart block. Patient presented to the emergency center with lightheadedness with standing and was found to have bradycardia. EKG sinus rhythm with first-degree AV block, second-degree AV block with ventric ular rate of 42, no acute ST-T changes Chest x-ray: Home cardiac medications: Aspirin 81 mg daily, Bumex 2 mg daily, Lasix 40 mg daily, losartan 100 mg daily, magnesium 500 mg daily, Toprol-XL 50 mg daily, simvastatin 40 mg at bedtime Cardiac catheterization in 2010 revealed minimal CAD Echocardiogram 12/2018 revealed normal LV size and normal function. Mild concentric hypertrophy and mild aortic regurgitation. Mild mitral regurgitation. Mild tricuspid regurgitation. Mild pulmonic regurgitation Lexiscan stress test 05/2018: Negative stress test 05/24 Patient underwent pacemaker implantation with Dr. Aiken with morning. She is currently in paced rhythm at the 60s. Echocardiogram reveals EF of 55-60%, moderate mitral annular calcification, trace mitral regurgitation, mild to moderate aortic regurgitation, mild tricuspid regurgitation, no pericardial effusion. 05/25 Patient denies any new concerns today. Her blood pressure is on the high side at 165/84. Telemetry is paced rhythm in the 60s to 80s. Chest x-ray shows no acute abnormalities and no complications from procedure. Pacemaker check from [employer] is scheduled for today. If this is fine, patient will be cleared for discharge. We are making some medication changes today Physical examination: Gen: This is an 82-year-old female. She is resting on the ER stretcher and appears to be comfortable and in no acute distress. VS: reviewed HEENT: Head is atraumatic, normocephalic. Pupils equal, round. Sclerae is anicteric. NECK: Supple. No JVD. . LUNGS: Clear to auscultation. No wheezes or rhonchi. No intercostal retractions. HEART: Regular rate and rhythm. No murmur. ABDOMEN: Soft No tenderness. EXTREMITIES: No pedal edema. No calf tenderness. NEUROLOGICAL: Patient is awake, alert and oriented x3. Assessment: She was found to be in 2-1 AV block with bradycardia in the 40s, narrow QRS status post permanent pacemaker History of hypertension dyslipidemia Normal potassium normal electrolytes normal TSH Plan: Continue current cardiac medications Add Coreg 6.25 mg twice daily Patient is cleared for discharge from cardiology after pacemaker interrogation has been completed. Patient may continue Lasix and Bumex at home and this will be addressed with Dr. Hickman on the next visit. Patient will follow up with Dr. Moss in the next 1-2 weeks. Nurse practitioner note has been reviewed, I agree with documented findings and plan of care. Patient was seen and examined. Objective - Vital Signs Vital signs: Vital Signs Temp 98.1 F 05/25/22 03:01 Pulse 84 05/25/22 03:01 Resp 16 05/25/22 03:01 BP 165/84 05/25/22 03:01 Pulse Ox 98 05/25/22 03:01 FiO2 Intake & Output 05/24/22 05/25/22 05/25/22 18:59 06:59 18:59 Intake Total 908 Balance 908 Weight 89.5 kg Intake: IV 250 Oral 658 Other: Voiding Method Toilet Toilet # Voids 1 1 # Bowel Movements 1 - Labs CBC & Chem 7: 05/23/22 08:11 05/23/22 08:11
[2022-05-25] MEDS: PANTOPRAZOLE 40 MG TABLET PO SCH (19:48)
[2022-05-25] MEDS: ATORVASTATIN 20 MG TAB PO SCH (19:48)
[2022-05-25] MEDS: LATANOPROST 0.005% OPHTH DROPS 2.5 ML BTL BOTH EYES SCH (19:49)
[2022-05-25 19:56] VITALS: RESP 16
[2022-05-25] MEDS: ACETAMINOPHEN TAB 325 MG TAB PO PRN (21:05)
--- NOTE | 2022-05-25 21:58 | P.PN ---
Subjective Patient is pleasant 82-year-old female came in because of dizziness, lightheadedness. Patient was seen at the outside hospital where she was found to have a severe bradycardia second-degree type I AV block. Patient did take metoprolol within last 24 hours which is being held and cardiology evaluated the patient. If patient can use to have bradycardia after 48 hours of taking metoprolol patient will be considered for pacemaker placement. Echocardiogram showed normal ejection fraction. No other significant abnormality was evident on biochemical and radiological testing. TSH is within normal limits 05/24/2022 Patient is evaluated today postoperative day 0 permanent pacemaker. Reports no pain. Blood pressure has improved to 138/79. Patient will be monitored overnight. 05/25/2022 Patient today was doing well she status post pacemaker insertion and her dizziness has resolved. Also she denies any other complaints Echocardiogram showed ejection fraction 55-60% Vital signs stable through the day and food and nutrition supervisor has cleared patient was pacemaker interrogation was done however patient's blood pressure was elevated with systolic more than 180 therefore Coreg was added and patient will be monitored overnight Objective - Vital Signs Vital signs: Vital Signs Temp 98.3 F 05/25/22 19:45 Pulse 83 05/25/22 19:45 Resp 16 05/25/22 19:45 BP 137/79 05/25/22 19:45 Pulse Ox 94 L 05/25/22 19:45 FiO2 Intake & Output 05/25/22 05/25/22 05/26/22 06:59 18:59 06:59 Intake Total 1180 Balance 1180 Intake: Intake, IV Titration 400 Amount Sodium Chloride 0.9% 1, 400 000 ml @ 50 mls/hr IV . Q20H [facility] Rx#:[id number] Oral 780 Other: Voiding Method Toilet Toilet Toilet # Voids 1 4 1 # Bowel Movements 0 - Exam GENERAL: The patient is alert and oriented x3, not in any acute distress. Well developed, well nourished. HEENT: Pupils are round and equally reacting to light. EOMI. No scleral icterus. No conjunctival pallor. Normocephalic, atraumatic. No pharyngeal erythema. No thyromegaly. CARDIOVASCULAR: S1 and S2 present. No murmurs, rubs, or gallops. PULMONARY: Chest is clear to auscultation, no wheezing or crackles. ABDOMEN: Soft, nontender, nondistended, normoactive bowel sounds. No palpable organomegaly. MUSCULOSKELETAL: No joint swelling or deformity. EXTREMITIES: No cyanosis, clubbing, or pedal edema. NEUROLOGICAL: Gross neurological examination did not reveal any focal deficits. SKIN: No rashes. no petechiae. - Labs CBC & Chem 7: 05/23/22 08:11 05/23/22 08:11 Assessment and Plan Assessment: Assessment and plan -Symptomatic bradycardia patient has second-degree type I AV block with heart rate going to as low as low 30s. Status post pacemaker, patient will be monitored overnight -Hypertension, uncontrolled, Coreg was added. We will monitor overnight possible discharge tomorrow -Hypothyroidism on levothyroxine DVT prophylaxis: Subcu heparin GI prophylaxis Protonix Full Code Plan Pateint will continue to be monitored overnight and likely discharge tomorrow.
[2022-05-25] MEDS: HEPARIN SODIUM,PORCINE/PF 5,000 UNIT/0.5 ML SYRINGE SQ SCH (23:04)
[2022-05-26] MEDS: carvediloL 6.25 MG TAB PO SCH (06:21)
[2022-05-26] MEDS: LEVOTHYROXINE 100 MCG TAB PO SCH (06:21)
[2022-05-26 08:18] VITALS: TEMP 97.9
[2022-05-26] MEDS: LOSARTAN 50 MG TAB PO SCH (08:18)
[2022-05-26] MEDS: CALCIUM CARBONATE 500 MG CHEWABLE PO SCH (08:18)
[2022-05-26] MEDS: HEPARIN SODIUM,PORCINE/PF 5,000 UNIT/0.5 ML SYRINGE SQ SCH (08:18)
[2022-05-26] MEDS: allopurinoL 300 MG TAB PO SCH (08:18)
[2022-05-26] MEDS: BRIMONIDINE TARTRATE 0.2% DROPS 5 ML BTL BOTH EYES SCH (08:18)
[2022-05-26] MEDS: ASPIRIN 81 MG PO SCH (08:18)
[2022-05-26] MEDS: MAGNESIUM OXIDE 400 MG TAB PO SCH (08:18)
[2022-05-26] MEDS: PANTOPRAZOLE 40 MG TABLET PO SCH (08:18)
[2022-05-26] MEDS ORDERED: carvediloL 6.25 MG TAB PO STA (08:56)
--- NOTE | 2022-05-26 11:35 | P.PN ---
Subjective Progress Note Date: 05/26/22 Bradycardia, second degree heart block History of present illness: History of present illness: This is an 82-year-old female patient of Dr. Grisel Hickman with past medical history of hypertension, dyslipidemia, mild obstructive coronary artery disease. She was last seen in the office in July 2021. We have been asked to evaluate the patient for bradycardia and second-degree heart block. Patient presented to the emergency center with lightheadedness with standing and was found to have bradycardia. EKG sinus rhythm with first-degree AV block, second-degree AV block with ventric ular rate of 42, no acute ST-T changes Chest x-ray: Home cardiac medications: Aspirin 81 mg daily, Bumex 2 mg daily, Lasix 40 mg daily, losartan 100 mg daily, magnesium 500 mg daily, Toprol-XL 50 mg daily, simvastatin 40 mg at bedtime Cardiac catheterization in 2010 revealed minimal CAD Echocardiogram 12/2018 revealed normal LV size and normal function. Mild concentric hypertrophy and mild aortic regurgitation. Mild mitral regurgitation. Mild tricuspid regurgitation. Mild pulmonic regurgitation Lexiscan stress test 05/2018: Negative stress test 05/24 Patient underwent pacemaker implantation with Dr. Aiken with morning. She is currently in paced rhythm at the 60s. Echocardiogram reveals EF of 55-60%, moderate mitral annular calcification, trace mitral regurgitation, mild to moderate aortic regurgitation, mild tricuspid regurgitation, no pericardial effusion. 05/25 Patient denies any new concerns today. Her blood pressure is on the high side at 165/84. Telemetry is paced rhythm in the 60s to 80s. Chest x-ray shows no acute abnormalities and no complications from procedure. Pacemaker check from [facility] is scheduled for today. If this is fine, patient will be cleared for discharge. We are making some medication changes today 05/26 We anticipated that patient would be discharged home yesterday but her 4 PM blood pressure was 186/96. This morning she is 154/74 heart rate is in the 60s and 70s. We'll plan to increase Coreg to 12.5 mg twice daily and patient is cleared for discharge. Physical examination: Gen: This is an 82-year-old female. She is resting on the ER stretcher and appears to be comfortable and in no acute distress. VS: reviewed HEENT: Head is atraumatic, normocephalic. Pupils equal, round. Sclerae is anicteric. NECK: Supple. No JVD. . LUNGS: Clear to auscultation. No wheezes or rhonchi. No intercostal retractions. HEART: Regular rate and rhythm. No murmur. ABDOMEN: Soft No tenderness. EXTREMITIES: No pedal edema. No calf tenderness. NEUROLOGICAL: Patient is awake, alert and oriented x3. Assessment: She was found to be in 2-1 AV block with bradycardia in the 40s, narrow QRS status post permanent pacemaker History of hypertension dyslipidemia Normal potassium normal electrolytes normal TSH Plan: Continue current cardiac medications Increase Coreg to 12.5 mg twice daily Patient is cleared for discharge from cardiology after pacemaker interrogation has been completed. Patient may continue Lasix and Bumex at home and this will be addressed with Dr. Hickman on the next visit. Patient will follow up with Dr. Hickman in the next 1-2 weeks. Nurse practitioner note has been reviewed, I agree with documented findings and plan of care. Patient was seen and examined. Objective - Vital Signs Vital signs: Vital Signs Temp 97.9 F 05/26/22 08:16 Pulse 70 05/26/22 08:16 Resp 16 05/26/22 08:16 BP 154/74 05/26/22 08:16 Pulse Ox 94 L 05/26/22 08:16 FiO2 Intake & Output 05/25/22 05/26/22 05/26/22 18:59 06:59 18:59 Intake Total 1180 180 Balance 1180 180 Intake: Intake, IV Titration 400 Amount Sodium Chloride 0.9% 1, 400 000 ml @ 50 mls/hr IV . Q20H ROBIN Rx#:[id number] Oral 780 180 Other: Voiding Method Toilet Toilet # Voids 4 1 # Bowel Movements 0 - Labs CBC & Chem 7: 05/23/22 08:11 05/23/22 08:11
[2022-05-26 15:44] VITALS: BP 153/74; PULSE 72
[2022-05-26] MEDS ORDERED: carvediloL 12.5 MG TAB PO SCH (17:30)
--- NOTE | 2022-05-26 23:18 | P.DS ---
Providers Date of admission: 05/23/22 05:48 Attending physician: Lona Molina Consults: 05/23/22 05:48 Consult Physician Urgent Consulting Provider: Marcelo Becker Consult Reason/Comments: Bradycardia, second-degree heart block Do you want consulting provider notified?: Already Contacted Primary care physician: Williams Contreras [facility] Course: Diagnoses: -Symptomatic bradycardia secondary to second-degree type I AV block with heart rate going to as low as low 30s. Status post pacemaker -Hypertension, uncontrolled, stable upon discharge -Hypothyroidism on levothyroxine -Obesity with BMI 32.8 Hospital course: Patient is pleasant 82-year-old female came in because of dizziness, lightheadedness. Patient has been evaluated by wrapper sorter and found to have cardiac block and she underwent pacemaker placement. Echocardiogram showed normal ejection fraction. Postprocedure her symptoms improved and patient is back to baseline. Blood pressure medication were adjusted per wrapper sorter and after stabilization per cardiology team she was cleared for discharge by Dr. Mosqueda and per bedside nurse On the day of discharge she denies any chest pain or dyspnea or headache dizziness weakness or numbness. No change in urine or bowel habits. No fever. Patient was cleared for discharge by wrapper sorter Problems and management plan were discussed with the patient and he verbalized understanding and acceptance Patient was found stable and can be discharged home in guarded prognosis however he needs follow-up as an outpatient. Patient was instructed to follow up with PCP within one week and patient agrees Patient was instructed to follow up with her wrapper sorter Dr. Hickman and one week and she agrees Physical exam Gen: patient is a AAOx3, no distress. Obese CVS: S1-S2, RRR, no murmur Lungs: B/L CTA, no wheezing Abdomen: soft, no distention, no tenderness, positive bowel sounds Extremity: no leg edema or induration Time spent more than 35 minutes Patient Condition at Discharge: Stable Plan - Discharge Summary Discharge Rx Participant: Yes New Discharge Prescriptions: New Acetaminophen Tab [Tylenol] 650 mg PO Q6HR PRN tab PRN Reason: Mild Pain (Scale 1 To 3) carvediloL [Coreg*] 12.5 mg PO BID-W/MEALS #60 tab Omeprazole 40 mg PO DAILY #30 cap Continue Vitamin E (Dl,Tocopheryl Acet) [Vitamin E (400 Iu = 180 mg)] 400 unit PO DAILY [place]-3 Fatty Acids/Fish Oil [Fish Oil 1,000 mg Softgel] 1 cap PO DAILY Aspirin 81 mg PO DAILY Latanoprost Ophth [Xalatan 0.005%] 1 drop BOTH EYES HS Potassium Chloride ER [K-Dur 20] 20 meq PO BID Losartan Potassium [Cozaar] 100 mg PO DAILY Furosemide [Lasix] 40 mg PO DAILY allopurinoL [Zyloprim] 300 mg PO DAILY Bumetanide [BUMEX] 2 mg PO DAILY Calcium Carbonate [Calcium] 600 mg PO DAILY Levothyroxine Sodium [Synthroid] 100 mcg PO DAILY Magnesium Oxide [Magnesium] 500 mg PO DAILY Multivit-Min/FA/Lycopen/Lutein [Centrum Silver Tablet] 1 tab PO DAILY Vitamin B Complex 1 cap PO DAILY Zinc Gluconate [Zinc] 50 mg PO DAILY Ascorbic Acid [Vitamin C] 1,000 mg PO DAILY Brimonidine Tartrate [Alphagan P 0.2% Ophth Soln] 1 drop BOTH EYES BID Simvastatin [Zocor] 40 mg PO HS EPINEPHrine (Auto Inject) [Epipen] 0.3 mg IM ONCE PRN PRN Reason: Anaphylaxis Discontinued Omeprazole 20 mg PO DAILY Metoprolol Succinate [Toprol XL] 50 mg PO DAILY Discharge Medication List Aspirin 81 mg PO DAILY 02/27/14 [History] Furosemide [Lasix] 40 mg PO DAILY 02/27/14 [History] Latanoprost Ophth [Xalatan 0.005%] 1 drop BOTH EYES HS 02/27/14 [History] Losartan Potassium [Cozaar] 100 mg PO DAILY 02/27/14 [History] [place]-3 Fatty Acids/Fish Oil [Fish Oil 1,000 mg Softgel] 1 cap PO DAILY 02/27/14 [History] Potassium Chloride ER [K-Dur 20] 20 meq PO BID 02/27/14 [History] Vitamin E (Dl,Tocopheryl Acet) [Vitamin E (400 Iu = 180 mg)] 400 unit PO DAILY 02/27/14 [History] allopurinoL [Zyloprim] 300 mg PO DAILY 02/27/14 [History] Ascorbic Acid [Vitamin C] 1,000 mg PO DAILY 05/23/22 [History] Brimonidine Tartrate [Alphagan P 0.2% Ophth Soln] 1 drop BOTH EYES BID 05/23/22 [History] Bumetanide [BUMEX] 2 mg PO DAILY 05/23/22 [History] Calcium Carbonate [Calcium] 600 mg PO DAILY 05/23/22 [History] EPINEPHrine (Auto Inject) [Epipen] 0.3 mg IM ONCE PRN 05/23/22 [History] Levothyroxine Sodium [Synthroid] 100 mcg PO DAILY 05/23/22 [History] Magnesium Oxide [Magnesium] 500 mg PO DAILY 05/23/22 [History] Multivit-Min/FA/Lycopen/Lutein [Centrum Silver Tablet] 1 tab PO DAILY 05/23/22 [History] Simvastatin [Zocor] 40 mg PO HS 05/23/22 [History] Vitamin B Complex 1 cap PO DAILY 05/23/22 [History] Zinc Gluconate [Zinc] 50 mg PO DAILY 05/23/22 [History] Acetaminophen Tab [Tylenol] 650 mg PO Q6HR PRN tab 05/25/22 [Rx] Omeprazole 40 mg PO DAILY #30 cap 05/26/22 [Rx] carvediloL [Coreg*] 12.5 mg PO BID-W/MEALS #60 tab 05/26/22 [Rx] Follow up Appointment(s)/Referral(s): Nonstaff,Physician [REFERRING] - 1-2 days Oleksandr Hickman MD [STAFF PHYSICIAN] - 1 Week (The office with call you with your appointment) Patient Instructions/Handouts: Heart Healthy Diet (DC), Pacemaker (DC) Activity/Diet/Wound Care/Special Instructions: Heart healthy diet activity is restricted till you see your doctor Discharge Disposition: HOME SELF-CARE
== END 2022-05-26 16:30 | disposition home or self-care (01) | DRG 243 ==
LOC: EC 05:22 → 3SCARD 05:48
PROVIDERS: ADMIT Hospitalist; ATTEND Hospitalist
PROC: 02H63JZ Insertion of Pacemaker Lead into Right Atrium, Percutaneous Approach (ICD-10-PCS; principal; 2022-05-25)
PROC: 02HK3JZ Insertion of Pacemaker Lead into Right Ventricle, Percutaneous Approach (ICD-10-PCS; principal; 2022-05-25)
PROC: 0JH606Z Insertion of Pacemaker, Dual Chamber into Chest Subcutaneous Tissue and Fascia, Open Approach (ICD-10-PCS; principal; 2022-05-25)
DX: I44.1 Atrioventricular block, second degree (principal); E87.3 Alkalosis; R00.1 Bradycardia, unspecified; I95.9 Hypotension, unspecified; T44.7X5A Adverse effect of beta-adrenoreceptor antagonists, initial encounter; E78.5 Hyperlipidemia, unspecified; I10 Essential (primary) hypertension; I25.10 Atherosclerotic heart disease of native coronary artery without angina pectoris; E03.9 Hypothyroidism, unspecified; H40.9 Unspecified glaucoma; K21.9 Gastro-esophageal reflux disease without esophagitis; M19.90 Unspecified osteoarthritis, unspecified site; I83.90 Asymptomatic varicose veins of unspecified lower extremity; I08.3 Combined rheumatic disorders of mitral, aortic and tricuspid valves; L71.9 Rosacea, unspecified; E86.9 Volume depletion, unspecified; E66.9 Obesity, unspecified; Z68.32 Body mass index [BMI] 32.0-32.9, adult; Z79.82 Long term (current) use of aspirin; Z79.890 Hormone replacement therapy; Z79.899 Other long term (current) drug therapy; Z96.653 Presence of artificial knee joint, bilateral; Z71.3 Dietary counseling and surveillance; Z91.030 Bee allergy status; Z82.49 Family history of ischemic heart disease and other diseases of the circulatory system
CPT/HCPCS: 33208; 71045; 80048; 84443; 84484; 85025; 93005; 93306; 94660; 99285